=== PATIENT | female | born 1995 | race Caucasian/White ===

== ENCOUNTER 2023-05-09 11:13 | Emergency (ER) | payer SELFPAY ==
--- OUTSIDE RECORDS SUMMARY | 2023-05-09 11:19 | XMS REPORT | Continuity of Care Document ---
:1995 Author Organization [facility] t Address [address] [place] [address] Care Team Providers Name Role Phone Enio Chambers Primary Care Physician [phone] Obdulia Baig MA Attending Clinician Unavailable ENIO QUARLES Attending Clinician Unavailable Enio Chambers Attending Clinician [phone] L_Pena Attending Clinician Unavailable Lab, Les Attending Clinician Unavailable NANCI REAL Attending Clinician Unavailable Provider, Les Allen Attending Clinician Unavailable MARY SALVADOR Attending Clinician Unavailable MARY SALVADOR Attending Clinician Unavailable Doctor Unassigned, [place] Attending Clinician Unavailable TI MORENO Attending Clinician Unavailable Ti Moreno MD Attending Clinician Abraham Harris MD Attending Clinician Mary Fonseca MD Attending Clinician Nanci Valencia Attending Clinician LOULOU BELTRAN Attending Clinician Unavailable Keke HUTSON, Stacy Attending Clinician Unavailable Ultrasound, Ang-Mfm Attending Clinician Unavailable Abigail Dewitt MD, Volodymyr Attending Clinician [phone] VOLODYMYR BINGHAM Attending Clinician Unavailable GRZEGORZ RENEE Attending Clinician Unavailable Grzegorz Renee MD Attending Clinician Mary Lino Attending Clinician MARY ANDERS Attending Clinician Unavailable TORO DAVIDSON Attending Clinician Unavailable TOOR DAVIDSON Attending Clinician Unavailable Toro Davidson MD Attending Clinician 1, Pea-Mfm Room Attending Clinician Unavailable Loulou Beltran MD Attending Clinician Estefani Salina GONZALEZ Attending Clinician [phone] SALINA JARA Attending Clinician Unavailable Jeovany Goode DO Attending Clinician JIHAN MARTINEZ Attending Clinician Unavailable Only, Adc Test Attending Clinician Unavailable Jihan Martinez PA-C Attending Clinician Hanny Thacker MD Attending Clinician 2, Adc Lab Attending Clinician Unavailable Ultrasound, Adc Mfm Attending Clinician Unavailable New Abreu HoweSherinHenrryaditya Smyth Attending Clinician LOULOU BELTRAN Admitting Clinician Unavailable GRZEGORZ RENEE Admitting Clinician Unavailable HANNY THACKER Admitting Clinician Unavailable L_Pena Admitting Clinician Unavailable TI MORENO Admitting Clinician Unavailable Ti Moreno MD Admitting Clinician Grzegorz Renee MD Admitting Clinician Hanny Thacker MD Admitting Clinician JIHAN MARTINEZ Admitting Clinician Unavailable Payers Payer Name Policy Type Policy Number Effective Date Expiration Date Tania morales [facility]MERLY [facility], [facility]–1983 [id number] 2019 CHOICE MEDICAID 00:00:00 FORMERLY [facility], 1928–1983 [id number] CHOICE (MEDICAID REPLACEMENT - HMO) Problems Condition Condition Condition Status Onset Resolution Last Treating Co mments Source Name Details Category Date Date Treatment Clinician Date Disease Active Univers uterine uterine 3-04 [place] Medical third third Branch trimester, trimester, antepartum antepartum Disease Active 2020-06 Uni vers with with 2-01 ity of adoption adoption 00:00: [place] planned, planned, 00 Medica l antepartum antepartum Br anch Multiparit Multiparit Disease Active 2020-06 U nivers y y 1-03 ity of 00:00: [place] 00 Medical Branch Atypical Atypical Disease Active 2020-06 Unive rs squamous squamous 0-13 ity of cells of cells of 00:00: [place] undetermin undetermin 00 Me dical ed ed Branch significan significan ce (ASCUS) ce (ASCUS) on on Papanicola Papanicola ou smear ou smear of cervix of cervix Maternal Maternal Disease Active Unive rs varicella, varicella, 9-29 it y of non-immune non-immune [place] , , Diagnosis Active 2017-01-19 Memoria SIDE PAIN SIDE PAIN 7-14 08:01:00 l Active 00:00: [place] 12/29/2016 00 [facility] Rh Rh Disease Active Overview: Univer s negative negative 5-10 Formattin ity of state in state in 00:00: g of this Horace as antepartum antepartum 00 note Me dical period period might be Branch different from the original. Needs Rhogam at 28wks and PP. Tobacco Tobacco Disease Active Univers use in use in 5-09 ity of , , [place] unspec[place] unspecifie 00 Me dical d d Branch trimester trimester Obesity in Obesity in Disease Active U nivers 5-09 ity of 00:00: [place] 00 Medical Branch ABDOMINAL ABDOMINAL Diagnosis Active 2015-09-09 Memoria PAIN UPPER PAIN UPPER 3- 15:46:00 l Active 00:00: [place] 08/17/2015 00 [facility] History of Past Illness Condition Condition Condition Status Onset Resolution Last Treating Co mments Source Name Details Category Date Date Treatment Clinician Date Discharge Discharge Problem 2015-08-20 2015-08-20 Memoria Diagnosis: Diagnosis: 3-01 06:10:27 06:10:27 l Incomplete Incomplete 06:00: He rmann 00 08/17/2015 08/20/2015 [facility] Allergies, Adverse Reactions, Alerts Allergy Allergy Status Severity Reaction(s) Onset Inactive Treating Comm ents Source Name Type Date Date Clinician NO KNOWN Drug Active [facility] ALLERGIE Class ity of S [facility] Social History Social Habit Start Date Stop Date Quantity Comments Source ASSERTION 2021-11-03 [facility] 00:00:00 [facility] History of tobacco Cigarette Smoker University of use [facility] Alcohol intake 2022-10-19 2022-10-19 Ex-drinker [facility] 00:00:00 00:00:00 (finding) [facility] Exposure to 2022-02-13 2022-02-23 Not sure [facility] SARS-CoV-2 (event) 00:00:00 14:13:00 [facility] Tobacco Comment 2022-01-04 2022-01-04 1/2 pack daily Unive rsity of 00:00:00 00:00:00 [facility] History of Social 2022-01-04 2022-01-04 Univers ity of function 00:00:00 00:00:00 [facility] Cigarettes smoked 2022-01-04 2022-01-04 Univers ity of current (pack per 00:00:00 00:00:00 ) - Reported Branch Cigarette 2022-01-04 2022-01-04 University of pack-years 00:00:00 00:00:00 [facility] Tobacco use and 2022-01-04 2022-01-04 Smokeless Universit y of exposure 00:00:00 00:00:00 tobacco non-user [facility] Sex Assigned At [birth year] Universit y of 00:00:00 00:00:00 [facility] Smoking Status Start Date Stop Date Source Smokes tobacco daily 2022-01-04 00:00:00 Univers ity [facility] Social History [facility] Medications Ordered Filled Start Stop Current Ordering Indication Dosage Frequency Signature Comments Components Source Medication Medication Date Date Medication? Clinician (SIG) Name Name Yes [id number] 1{tbl} Take 1 Univers [id number] 3-30 tablet by ity of fum-folic 00:00: mouth [place] () 00 daily. Medical 27 mg iron- Branch 1 mg folic tablet docusate Yes [id number] 200mg Take 2 U nivers 100 mg 3-30 capsules ity of capsule 00:00: by mouth [place] 00 once daily Medical as needed Branch for Constipati on. ferrous Yes [id number] 325mg Take 1 Un [place] sulfate 325 3-30 tablet by ity of mg (65 mg 00:00: mouth 2 [place] iron) 00 (two) Medical tablet times Branch daily. ibuprofen Yes [id number] 600mg Take 1 Univers 600 mg 3-30 tablet by ity of tablet 00:00: mouth [place] 00 every 6 Medical (six) Branch hours as needed (Pain). Take with food or milk. Yes [id number] 1{tbl} Take 1 Univers [id number] 3-30 tablet by ity of fum-folic 00:00: mouth [place] () 00 daily. Medical 27 mg iron- Branch 1 mg folic tablet docusate Yes [id number] 200mg Take 2 U nivers 100 mg 3-30 capsules ity of capsule 00:00: by mouth [place] 00 once daily Medical as needed Branch for Constipati on. ferrous Yes [id number] 325mg Take 1 Un [place] sulfate 325 3-30 tablet by ity of mg (65 mg 00:00: mouth 2 [place] iron) 00 (two) Medical tablet times Branch daily. ibuprofen Yes [id number] 600mg Take 1 Univers 600 mg 3-30 tablet by ity of tablet 00:00: mouth [place] 00 every 6 Medical (six) Branch hours as needed (Pain). Take with food or milk. Yes [id number] 1{tbl} Take 1 Univers [id number] 3-30 tablet by ity of fum-folic 00:00: mouth [place] () 00 daily. Medical 27 mg iron- Branch 1 mg folic tablet docusate Yes [id number] 200mg Take 2 U nivers 100 mg 3-30 capsules ity of capsule 00:00: by mouth [place] 00 once daily Medical as needed Branch for Constipati on. ferrous Yes [id number] 325mg Take 1 Un [place] sulfate 325 3-30 tablet by ity of mg (65 mg 00:00: mouth 2 [place] iron) 00 (two) Medical tablet times Branch daily. ibuprofen Yes [id number] 600mg Take 1 Univers 600 mg 3-30 tablet by ity of tablet 00:00: mouth [place] 00 every 6 Medical (six) Branch hours as needed (Pain). Take with food or milk. Yes [id number] 1{tbl} Take 1 Univers [id number] 3-30 tablet by ity of fum-folic 00:00: mouth [place] () 00 daily. Medical 27 mg iron- Branch 1 mg folic tablet docusate Yes [id number] 200mg Take 2 U nivers 100 mg 3-30 capsules ity of capsule 00:00: by mouth [place] 00 once daily Medical as needed Branch for Constipati on. ferrous Yes [id number] 325mg Take 1 Un [place] sulfate 325 3-30 tablet by ity of mg (65 mg 00:00: mouth 2 [place] iron) 00 (two) Medical tablet times Branch daily. ibuprofen Yes [id number] 600mg Take 1 Univers 600 mg 3-30 tablet by ity of tablet 00:00: mouth [place] 00 every 6 Medical (six) Branch hours as needed (Pain). Take with food or milk. Cefuroxime Yes 500 mg = 1 M emoria 500 MG Oral 3-01 tab, PO, l Tablet 23:25: BID, X 7 [place] 00 day, # 14 tab, 0 Refill(s) Yes 1 tab, PO, Mem oria Multivitami 3- Daily, # l ns with 23:21: 30 tab, 0 Jackie nn Folic Acid 00 Refill(s) 1 mg oral tablet Acetaminoph Yes 1 tab, PO, Memoria en 300 MG / 3-01 Q6H, PRN l Codeine 23:21: Pain, not Jackie nn Phosphate 00 to exceed 30 MG Oral 4000 mg Tablet acetaminop [Tylenol hen per with day, X 3 Codeine #3] day, # 12 tab, 0 Refill(s) Methylergon No 0.2 mg = 1 Memoria ovine 3- tab, PO, l Maleate 0.2 23:19: TID, X 2 He rmann MG Oral 00 day, # 6 Tablet tab, 0 Refill(s) Morphine No Notes: Memoria 08-16 (Same l 21:39: as:MORPhin [place] 00 e Sulfate) Methergine No Notes: Memor ia 08-16 (Same l 21:19: as:Metherg Kyle 00 ine) Cytotec No Notes: Memoria 08-16 (Same l 21:18: as:Cytotec [place] 00 ) Take with food Acetaminoph No Notes: Do M emoria en 08-16 not exceed l 19:56: 4 gm/day. Kyle 00 (Same as: Tylenol) Ceftriaxone No Notes: Lenny ilya 08-16 (Same As: l 19:13: Rocephin). [place] 00 Use with 100 mL NS and infuse over 30 min MEDICATION WASTE Product Size: 1000 mg Product Wasted: ___ mg Metoclopram No Notes: Lenny ilya maryjane 08-16 (Same as: l 18:39: Reglan) Kyle 00 Sodium No 1,000 mL, Memori a Chloride 08-16 1000 l 0.154 18:38: ml/hr, Kyle MEQ/ML 00 Infuse Injectable Over: 1 Solution hr, Route: IV, 1,000, Drug form: INJ, ONCE, Priority: STAT, Dosing Weight 71.818 kg, Start date: 08/17/15 12:38:00, Duration: 1 doses or times, Stop date: 08/17/15 12:38:00 Sodium No 1,000 mL, Memori a Chloride 08-16 1000 l 0.154 18:30: ml/hr, [place] MEQ/ML 00 Infuse Injectable Over: 1 Solution hr, Route: IV, 1,000, Drug form: INJ, ONCE, Priority: STAT, Dosing Weight 71.818 kg, Start date: 08/17/15 12:30:00, Duration: 1 doses or times, Stop date: 08/17/15 12:30:00 Saline No Notes: Memoria Flush 0.9% 08-16 Same as: l 15:48: BD [place] 00 Posiflush Sterile Sodium 2016-0 No 1,000 mL, Memori a Chloride 3-01 1000 l 0.154 15:48: ml/hr, [place] MEQ/ML 00 Infuse Injectable Over: 1 Solution hr, Route: IV, 1,000, Drug form: INJ, ONCE, Priority: STAT, Dosing Weight 71.818 kg, Start date: 08/17/15 9:48:00, Duration: 1 doses or times, Stop date: 08/17/15 9:48:00 Immunizations Ordered Immunization Filled Date Status Comments Sour ce Name Immunization Name Rho (d) Immune 2021-09-14 Completed University of Globulin 00:00:00 [facility] Rho (d) Immune 2021-09-14 Completed University of Globulin 00:00:00 [facility] Rho (d) Immune 2021-09-14 Completed University of Globulin 00:00:00 [facility] TDAP 2021-06-29 Completed University of 00:00:00 [facility] Rho (d) Immune 2021-06-29 Completed University of Globulin 00:00:00 [facility] TDAP 2021-06-29 Completed University of 00:00:00 [facility] Rho (d) Immune 2021-06-29 Completed University of Globulin 00:00:00 [facility] TDAP 2021-06-29 Completed University of 00:00:00 [facility] Rho (d) Immune 2021-06-29 Completed University of Globulin 00:00:00 [facility] Influenza Virus 2021-04-20 Completed Universit y of Vaccine Quad IM, 00:00:00 [facility] [place] dical Preserv and ABX Free Bran ch 6 MO-64 YRS Influenza Virus 2021-04-20 Completed Universit y of Vaccine Quad IM, 00:00:00 [place] Me dical Preserv and ABX Free Bran ch 6 MO-64 YRS Influenza Virus 2021-04-20 Completed Universit y of Vaccine Quad IM, 00:00:00 [facility] [place] dical Preserv and ABX Free Bran ch 6 MO-64 YRS Pneumococcal 2020-03-03 Completed Isabel o f Polysaccharide, 00:00:00 [place] Med ical PPSV23 (PNEUMOVAX) Branch Pneumococcal 2020-03-03 Completed Isabel o f Polysaccharide, 00:00:00 [place] Med ical PPSV23 (PNEUMOVAX) Branch Pneumococcal 2020-03-03 Completed University o f Polysaccharide, 00:00:00 [place] Med ical PPSV23 (PNEUMOVAX) Branch TDAP 2019-12-18 Completed University of 00:00:00 [facility] Rho (d) Immune 2019-12-18 Completed University of Globulin 00:00:00 [facility] TDAP 2019-12-18 Completed University of 00:00:00 [facility] Rho (d) Immune 2019-12-18 Completed University of Globulin 00:00:00 [facility] TDAP 2019-12-18 Completed University of 00:00:00 [facility] Rho (d) Immune 2019-12-18 Completed University of Globulin 00:00:00 [facility] Influenza Virus 2019-07-23 Completed Universit y of Vaccine Quad .5 mL 00:00:00 [facility] 6+ MO Branch Influenza Virus 2019-07-23 Completed Universit y of Vaccine Quad .5 mL 00:00:00 [facility] IM 6+ MO Branch Influenza Virus 2019-07-23 Completed Universit y of Vaccine Quad .5 mL 00:00:00 [facility] 6+ MO Branch HPV9 2018-01-03 Completed University of 00:00:00 [facility] HPV Unspecified 2018-01-03 Completed Universit y of 00:00:00 [facility] HPV9 2018-01-03 Completed University of 00:00:00 [facility] HPV Unspecified 2018-01-03 Completed Universit y of 00:00:00 [facility] HPV9 2018-01-03 Completed University of 00:00:00 [facility] HPV Unspecified 2018-01-03 Completed Universit y of 00:00:00 [facility] HPV9 2017-06-27 Completed University of 00:00:00 [facility] HPV Unspecified 2017-06-27 Completed Universit y of 00:00:00 [facility] HPV9 2017-06-27 Completed University of 00:00:00 [facility] HPV Unspecified 2017-06-27 Completed Universit y of 00:00:00 [facility] HPV9 2017-06-27 Completed University of 00:00:00 [facility] HPV Unspecified 2017-06-27 Completed Universit y of 00:00:00 [facility] Varicella 2017-05-16 Completed University of (varivax)(chicken 00:00:00 [place] M edical pox) Branch Varicella 2017-05-16 Completed University of (varivax)(chicken 00:00:00 [facility] edical pox) Branch Varicella 2017-05-16 Completed University of (varivax)(chicken 00:00:00 [facility] edical pox) Branch Rho (d) Immune 2017-05-15 Completed University of Globulin 00:00:00 [facility] HPV9 2017-05-15 Completed University of 00:00:00 [facility] HPV Unspecified 2017-05-15 Completed Universit y of 00:00:00 [facility] Rho (d) Immune 2017-05-15 Completed University of Globulin 00:00:00 [facility] HPV9 2017-05-15 Completed University of 00:00:00 [facility] HPV Unspecified 2017-05-15 Completed Universit y of 00:00:00 [facility] Rho (d) Immune 2017-05-15 Completed University of Globulin 00:00:00 [facility] HPV9 2017-05-15 Completed University of 00:00:00 [facility] HPV Unspecified 2017-05-15 Completed Universit y of 00:00:00 [facility] TDAP 2017-03-28 Completed University of 00:00:00 [facility] Influenza Virus 2017-03-28 Completed Universit y of Vaccine Quad IM 3+ 00:00:00 [facility] Rho (d) Immune 2017-03-28 Completed University of Globulin 00:00:00 [facility] TDAP 2017-03-28 Completed University of 00:00:00 [facility] Influenza Virus 2017-03-28 Completed Universit y of Vaccine Quad IM 3+ 00:00:00 [facility] Rho (d) Immune 2017-03-28 Completed University of Globulin 00:00:00 [facility] TDAP 2017-03-28 Completed University of 00:00:00 [facility] Influenza Virus 2017-03-28 Completed Universit y of Vaccine Quad IM 3+ 00:00:00 [facility] Rho (d) Immune 2017-03-28 Completed University of Globulin 00:00:00 [facility] Meningococcal 2013-02-14 Completed University of Polysaccharide 00:00:00 [place] Medi mehnaz (groups A, C, Y and Branc h W-135) conjugate vaccine (MCV4P) Meningococcal 2013-02-14 Completed University of Polysaccharide 00:00:00 [place] Medi mehnaz (groups A, C, Y and Branc h W-135) conjugate vaccine (MCV4P) Meningococcal 2013-02-14 Completed University of Polysaccharide 00:00:00 [place] Medi mehnaz (groups A, C, Y and Branc h W-135) conjugate vaccine (MCV4P) Varicella 2011-02-01 Completed University of (varivax)(chicken 00:00:00 [place] M edical pox) Branch Meningococcal 2011-02-01 Completed University of Polysaccharide 00:00:00 [place] Medi mehnaz (groups A, C, Y and Branc h W-135) conjugate vaccine (MCV4P) Varicella 2011-02-01 Completed University of (varivax)(chicken 00:00:00 [place] M edical pox) Branch Meningococcal 2011-02-01 Completed University of Polysaccharide 00:00:00 [place] Medi mehnaz (groups A, C, Y and Branc h W-135) conjugate vaccine (MCV4P) Varicella 2011-02-01 Completed University of (varivax)(chicken 00:00:00 [place] M edical pox) Branch Meningococcal 2011-02-01 Completed University of Polysaccharide 00:00:00 [facility] mehnaz (groups A, C, Y and Branc h W-135) conjugate vaccine (MCV4P) Polio (IPV/OPV) 2002-01-28 Completed Universit y of 00:00:00 [facility] Polio (IPV/OPV) 2002-01-28 Completed Universit y of 00:00:00 [facility] Polio (IPV/OPV) 2002-01-28 Completed Universit y of 00:00:00 [facility] TDAP Unknown Completed [facility] Influenza Virus Unknown Completed Universit y of Vaccine Quad IM 3+ [facility] Rho (d) Immune Unknown Completed [facility] Globulin [facility] Rho (d) Immune Unknown Completed [facility] HPV9 Unknown Completed [facility] Varicella Unknown Completed University of (varivax)(chicken [place] M edical pox) Branch HPV9 Unknown Completed [facility] HPV9 Unknown Completed [facility] Influenza Virus Unknown Completed Universit y of Vaccine Quad .5 mL [facility] 6+ MO Branch (FLUZONE/FLULAVAL/FL UARIX) HPV Unspecified Unknown Completed Universit y of [facility] HPV Unspecified Unknown Completed Universit y of [facility] HPV Unspecified Unknown Completed Universit y of [facility] Varicella Unknown Completed University of (varivax)(chicken [place] M edical pox) Branch Meningococcal Unknown Completed [facility] Polysaccharide [facility] mehnaz (groups A, C, Y and Branc h W-135) conjugate vaccine (MCV4P) Meningococcal Unknown Completed [facility] Polysaccharide [facility] (groups A, C, Y and Branc h W-135) conjugate vaccine (MCV4P) Polio (IPV/OPV) Unknown Completed [facility] TDAP Unknown Completed [facility] Rho (d) Immune Unknown Completed [facility] Pneumococcal Unknown Completed Isabel o f Polysaccharide, [facility] ica PPSV23 (PNEUMOVAX) Branch TDAP Unknown Completed [facility] Influenza Virus Unknown Completed Universit y of Vaccine Quad IM 3+ [facility] Rho (d) Immune Unknown Completed [facility] Rho (d) Immune Unknown Completed [facility] HPV9 Unknown Completed [facility] Varicella Unknown Completed University of (varivax)(chicken [place] M edical pox) Branch HPV9 Unknown Completed [facility] HPV9 Unknown Completed [facility] Influenza Virus Unknown Completed Universit y of Vaccine Quad .5 mL [facility] 6+ MO Branch (FLUZONE/FLULAVAL/FL UARIX) HPV Unspecified Unknown Completed [facility] HPV Unspecified Unknown Completed [facility] HPV Unspecified Unknown Completed [facility] Varicella Unknown Completed University of (varivax)(chicken [place] M edical pox) Branch Meningococcal Unknown Completed University Polysaccharide [facility] (groups A, C, Y and Branc h W-135) conjugate vaccine (MCV4P) Meningococcal Unknown Completed [facility] Polysaccharide [facility] (groups A, C, Y and Branc h W-135) conjugate vaccine (MCV4P) Polio (IPV/OPV) Unknown Completed [facility] TDAP Unknown Completed [facility] Rho (d) Immune Unknown Completed [facility] TDAP Unknown Completed [facility] Influenza Virus Unknown Completed Universit y of Vaccine Quad IM 3[facility] Rho (d) Immune Unknown Completed [facility] Rho (d) Immune Unknown Completed [facility] HPV9 Unknown Completed [facility] Varicella Unknown Completed University of (varivax)(chicken [place] M edical pox) Branch HPV9 Unknown Completed [facility] HPV9 Unknown Completed [facility] Influenza Virus Unknown Completed Universit y of Vaccine Quad .5 mL [facility] IM 6+ MO Branch (FLUZONE/FLULAVAL/FL UARIX) HPV Unspecified Unknown Completed [facility] HPV Unspecified Unknown Completed [facility] HPV Unspecified Unknown Completed [facility] Varicella Unknown Completed University of (varivax)(chicken [place] [facility] pox) Branch Meningococcal Unknown Completed [facility] Polysaccharide [facility] mehnaz (groups A, C, Y and Branc h W-135) conjugate vaccine (MCV4P) Meningococcal Unknown Completed [facility] Polysaccharide [facility] mehnaz (groups A, C, Y and Branc h W-135) conjugate vaccine (MCV4P) Polio (IPV/OPV) Unknown Completed [facility] TDAP Unknown Completed [facility] Rho (d) Immune Unknown Completed [facility] Pneumococcal Unknown Completed [facility] ical PPSV23 (PNEUMOVAX) Branch Influenza Virus Unknown Completed [facility] of Vaccine Quad , [facility] dical Preserv and ABX Free Bran ch 6 MO-64 YRS (FLUCELVAX) TDAP Unknown Completed [facility] Rho (d) Immune Unknown Completed [facility] Rho (d) Immune Unknown Completed [facility] RhoGam (MAR Unknown Completed [facility] Charting) Kyle Vital Signs Vital Name Observation Time Observation Value Comments Source Systolic blood 2022-02-23 19:14:00 117 mm[Hg] [facility] Diastolic blood 2022-02-23 19:14:00 67 mm[Hg] [facility] [place] Heart rate 2022-02-23 19:14:00 94 /min [facility] Body temperature 2022-02-23 19:14:00 36.22 Sarah [facility] Respiratory rate 2022-02-23 19:14:00 18 /min [facility] Body height 2022-02-23 19:14:00 167.6 cm [facility] Body weight 2022-02-23 19:14:00 104.809 kg [facility] BMI 2022-02-23 19:14:00 37.29 kg/m2 [facility] Respitory Rate 2015-08-18 00:35:00 Memori al [facility] Heart Rate 2015-08-18 00:35:00 [facility] Temperature Oral (F) 2015-08-18 00:35:00 98.4 F [facility] Systolic (mm Hg) 2015-08-18 00:35:00 Lenny rial [facility] Diastolic (mm Hg) 2015-08-18 00:35:00 Mem orial [place] Temperature Oral (F) 2015-08-17 22:42:00 98.4 F [facility] Systolic (mm Hg) 2015-08-17 22:42:00 Lenny rial [place] Diastolic (mm Hg) 2015-08-17 22:42:00 Mem orial [place] Respitory Rate 2015-08-17 22:42:00 Memori [facility] [place] Heart Rate 2015-08-17 22:42:00 [facility] Respitory Rate 2015-08-17 21:10:00 Memori al [facility] Heart Rate 2015-08-17 21:10:00 [facility] Systolic (mm Hg) 2015-08-17 21:10:00 Lenny rial [place] Diastolic (mm Hg) 2015-08-17 21:10:00 Mem orial [place] Temperature Oral (F) 2015-08-17 21:10:00 98.3 F [facility] BMI Calculated 2015-08-17 15:30:00 Memori al [facility] Height 2015-08-17 15:30:00 167.64 cm [facility] Kyle Weight 2015-08-17 15:30:00 [facility] Procedures Procedure Date / Time Performed Performing Clinician Sourc e POCT URINALYSIS 2022-02-23 19:16:00 Mary Salvador [facility] Encounters Start End Encounter Admission Attending Care Care Encounter Source Date/Time Date/Time Type Type Clinicians Facility Department ID 2021-08-19 Outpatient X [facility] [id number] Univers 15:10:02 y [facility] 2021-04-15 Outpatient P [facility] [id number] Univers 16:36:50 [facility] 2021-04-15 Outpatient P [facility] [id number] Univers 15:40:56 ity of [facility] 2021-04-15 Outpatient P [facility] [id number] Univers 15:38:58 ity of [facility] 2021-04-15 Outpatient P [facility] [id number] Univers 09:42:34 ity of [facility] 2021-04-15 Outpatient P [facility] [id number] Univers 09:40:24 ity of [facility] 2023-03-22 2023-03-22 VIKKI Ramos 1.2.840.114 [id number] Univers 00:00:00 00:00:00 Management Obdulia YING 350.1.13.10 [place] of [place] [phone] [address] 2022-03-30 2022-03-30 Outpatient P [facility] [id number] Univers 10:45:00 10:45:00 ity [facility] 2022-03-23 2022-03-23 Outpatient R AKINSIPE, [facility] [id number] Univers 14:00:00 14:00:00 ENIO otilioy o [facility] 2022-02-23 2022-02-23 Outpatient R AKINSIPE, [facility] [id number] Univers 14:00:00 15:36:17 ENIO otilioy o f [facility] 2022-02-23 2022-02-23 Routine Akinpe, [facility] 1.2.467.075 [id number] Univers 14:00:00 15:36:17 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 350.1.13.10 ity of Visit REGIONAL 4.2.7.2.686 Horace as MATERNAL [phone] Med ical & CHILD [address] [place] [address] 2022-02-16 2022-02-16 Outpatient L_Phillip [facility] [id number] [place] 00:00:00 00:00:00 0901 [facility] 2022-02-13 2022-02-13 [facility] 1.2.840.114 [id number] Univers 00:00:00 00:00:00 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 350.1.13.10 ity of REGIONAL 4.2.7.2.686 Horace as MATERNAL [id number] [facility] [address] [place] [address] 2022-02-10 2022-02-10 Dry House Worker Lab, [facility] 1.2.840. 114 [id number] Univers 08:15:00 08:24:14 Visit Enio Quarles STITCHER OPERATOR 350.1.13. 10 ity of [facility] 4.2.7.2.686 Horace as MATERNAL [id number] [facility] ical & CHILD [address] [place] [address] 2022-02-10 2022-02-10 Outpatient R WILLAM [facility] [id number] Univers 08:15:00 08:15:00 ENIO alfaro o [facility] 2022-02-10 2022-02-10 Telephone Willam [facility] 1.2.840.114 [id number] Univers 00:00:00 00:00:00 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 350.1.13.10 ity of [facility] 4.2.7.2.686 Horace as MATERNAL [id number] [address] 2022-02-01 2022-02-01 Outpatient Hang REAL [facility] [id number] Univers 11:00:00 11:00:00 NANCI álvarez [facility] 2022-01-09 2022-01-09 Outpatient Hang QUARLES [facility] [id number] Univers 10:30:00 10:30:00 ENIO alfaro o [facility] 2022-01-06 2022-01-06 Telephone Provider, [facility] 1.2.840.114 [id number] Univers 00:00:00 00:00:00 [facility] STITCHER OPERATOR 350.1.13.10 ity of [facility] 4.2.7.2.686 Horace as MATERNAL [id number] [facility] & CHILD [address] [place] [address] 2022-01-04 2022-01-04 Outpatient MARY MIDDLETON [facility] [id number] Univers 13:00:00 14:37:56 MARY SALVADOR ity of [facility] 2022-01-04 2022-01-04 Initial [facility] 1 .2.840.114 [id number] Univers 13:00:00 14:37:56 Mary Salvador STITCHER OPERATOR 350.1.13.10 ity of Visit [facility] 4.2.7.2.686 Horace as MATERNAL [id number] Med ical & CHILD [address] [place] [address] 2022-01-04 2022-01-04 Orders Doctor TRUDI 1.2.840.114 [id number] Univers 00:00:00 00:00:00 Only Unassigned, NICK 350.1.13.10 ity of [place] [facility] 4.2.7.2.686 Horace as [id number] [place] [address] [place] 2021-12-16 2021-12-16 Outpatient R [facility] [id number] Univers 09:30:00 09:30:00 ity of [facility] 2021-12-06 2021-12-06 Outpatient R AKINSIPE, [facility] [id number] Univers 14:15:00 14:15:00 ENIO itluci o [facility] 2021-10-19 2021-10-19 Outpatient R ADDIE, [facility] [id number] Univers 14:30:00 14:30:00 ROSPATRICNDA itluci o [facility] 2021-09-13 2021-09-14 Inpatient X SANTANA [facility] [id number] Univers 07:28:00 19:31:00 TI itluci [facility] 2021-09-13 2021-09-14 Hospital TRUDI Moreno 1.2.777.857 [id number] Univers 07:28:00 19:31:00 Encounter Ti ROMERO 350.1.13.[address]2.686 Horace as [phone] [place] [address] [place] 2021-09-13 2021-09-13 Anesthesia Abraham Harris 1.2.840.11 [id number] Univers 10:08:00 18:52:00 Event Mary Fonseca 350.1.13.10 ity of HOSPITAL 4.2.7.2.686 Horace as [phone] [facility] [address] [place] 2021-09-13 2021-09-13 Orders Doctor TRUDI 1.2.840.114 [id number] Univers 00:00:00 00:00:00 Only Unassigned, NICK 350.1.13.10 ity of [place] [facility] 4.2.7.2.686 Horace as [id number] [facility] [address] [place] 2021-09-06 2021-09-06 [facility] [id number] Univers 15:30:00 15:30:00 [facility] 2021-08-30 2021-08-30 [facility]patient [facility] [id number] Univers 13:15:00 13:54:40 [facility] 2021-08-30 2021-08-30 [facility] 1.2.840.114 [id number] Univers 13:15:00 13:30:00 Roshunda R STITCHER OPERATOR 350.1.13.10 ity of Visit [facility] 4.2.7.2.686 Horace as MATERNAL [phone] [facility] ical & CHILD [address] [place] [address] 2021-08-30 2021-08-30 [facility]patient [facility] [id number] Univers 13:15:00 13:15:00 ROSPATRICNDA ity o [facility] 2021-08-23 2021-08-23 [facility]patient [facility] [id number] Univers 10:30:00 11:26:35 ROSNDA ity o [facility] 2021-08-23 2021-08-23 [facility] 1.2.840.114 [id number] Univers 10:30:00 11:26:35 Roshunda R STITCHER OPERATOR 350.1.13.10 ity of Visit [facility] 4.2.7.2.686 Horace as MATERNAL [id number] [facility] [address] [place] [address] 2021-08-232021-08-23 [facility] [id number] Univers 10:30:00 11:26:35 MARTYNDA dominic o f [facility] 2021-08-19 2021-08-19 Outpatient Soledad BELTRAN [facility] [id number] Univers 13:14:00 15:00:00 LOULOU ity [facility] 2021-08-19 2021-08-19 Nurse Stacy Davies 1.2.840.114 [id number] Univers 00:00:00 00:00:00 Triage NICK 350.1.13.10 it y of [facility] 4.2.7.2.686 Horace as [id number] [address] 2021-08-10 2021-08-10 [facility] 1.2.840.114 [id number] Univers 13:00:00 13:15:00 Roshunda R STITCHER OPERATOR 350.1.13.10 ity of Visit REGIONAL 4.2.7.2.686 Horace as MATERNAL [id number] [facility] ical & CHILD [address] [place] [address] 2021-08-10 2021-08-10 [facility] [id number] Univers 13:00:00 13:00:00 NANCI alfaro o [facility] 2021-07-27 2021-07-27 [facility] [id number] Univers 13:00:00 13:36:39 MARYTNDA dominic o [facility] 2021-07-27 2021-07-27 [facility] 1.2.840.114 [id number] Univers 13:00:00 13:36:39 Roshunda R STITCHER OPERATOR 350.1.13.10 ity of Visit REGIONAL 4.2.7.2.686 Horace as MATERNAL [id number] [facility] ical & CHILD [address] [place] [address] 2021-07-25 2021-07-25 Dry House Worker Ultrasound, [facility] 1.2 .840.114 [id number] Univers 10:30:00 11:00:00 Visit Volodymyr Bingham STITCHER OPERATOR 350.1. 13.10 ity of REGIONAL 4.2.7.2.686 Horace as MATERNAL [phone] [facility] ical & CHILD [address] [facility] 2021-07-25 2021-07-25 Outpatient P ABIGAIL [facility] [id number] Univers 10:30:00 10:30:00 ALESHIA it y of S, HELM [facility] 2021-07-13 2021-07-13 Routine [facility] 1.2.840.114 [id number] Univers 09:30:00 09:45:00 Roshunda R STITCHER OPERATOR 350.1.13.10 ity of Visit REGIONAL 4.2.7.2.686 Horace as MATERNAL [id number] [facility] & [address] 2021-07-13 2021-07-13 [facility] [id number] Univers 09:30:00 09:30:00 ROSPATRICNDA dominic o f [facility] 2021-07-13 2021-07-13 Outpatient R ADDIE [facility] [id number] Univers 09:30:00 09:30:00 ROSPATRICNDA itluci o f [facility] 2021-06-30 2021-06-30 Outpatient X GRZEGORZ RENEE [facility] [id number] Univers 15:14:00 18:40:00 ity of [facility] 2021-06-30 2021-06-30 Emergency Grzegorz Renee [facility] 1.2.840.114 [id number] Univers 15:14:00 18:40:00 [facility] 350.1.13.10 i ty of [place] 4.2.7.2.686 [place] [facility] [id number] [address] 2021-06-30 2021-06-30 Telephone [facility] 1.2.023.773 [id number] Univers 00:00:00 00:00:00 Roshunda R STITCHER OPERATOR 350.1.13.10 ity of REGIONAL 4.2.7.2.686 Horace as MATERNAL [id number] [facility] & CHILD [address] [place] [address] 2021-06-29 2021-06-29 Outpatient R ADDIE [facility] [id number] Univers 13:30:00 14:04:36 NANCI alfaro o f [facility] 2021-06-29 2021-06-29 Routine Nanci Real R [facility] 1.2.840 .114 [id number] Univers 13:30:00 14:04:36 Mary Anders STITCHER OPERATOR 350.1.13.10 ity of Visit REGIONAL 4.2.7.2.686 Horace as MATERNAL [id number] [facility] ical & CHILD [address] [place] [address] 2021-06-29 2021-06-29 Outpatient R MARTITA [facility] [id number] Univers 13:30:00 13:30:00 MARY alfaro [facility] 2021-06-08 2021-06-08 [facility] [id number] Univers 07:45:00 08:27:33 MARY yañezluci [facility] 2021-06-08 2021-06-08 Routine [facility] 1.2.711.435 [id number] Univers 07:45:00 08:27:33 Mary Beck STITCHER OPERATOR 350.1.13.10 i ty of Visit REGIONAL 4.2.7.2.686 Horace as MATERNAL [phone] [facility] & CHILD [address] [place] [address] 2021-06-08 2021-06-08 Outpatient R MARTITA [facility] [id number] Univers 07:45:00 07:45:00 MARY alfaro [facility] 2021-05-25 2021-05-25 Outpatient P TORO DAVIDSON [facility] [id number] Univers 14:30:00 14:56:10 TORO DAVIDSON [facility] 2021-05-25 2021-05-25 Dry House Worker Ultrasound, [facility] 1.2 .840.114 [id number] Univers 14:22:35 14:56:10 Visit Toro Davidson STITCHER OPERATOR 350.1.13.10 ity of REGIONAL 4.2.7.2.686 Horace as MATERNAL [id number] [facility] CHILD [address] [place] [address] 2021-05-18 2021-05-18 Routine [facility] 1.2.755.009 [id number] Univers 14:15:10 14:41:41 Mary N STITCHER OPERATOR 350.1.13.10 i ty of Visit REGIONAL 4.2.7.2.686 Horace as MATERNAL [id number] [facility] CH[facility] [address] [place] [address] 2021-05-18 2021-05-18 Outpatient [facility] [id number] Univers 14:15:00 14:41:41 MARY alfaro [facility] 2021-05-18 2021-05-18 Outpatient [facility] [id number] Univers 14:15:00 14:15:00 MARY alfaro [facility] 2021-05-06 2021-05-06 Telephone [facility] 1.2.840.114 [id number] Univers 00:00:00 00:00:00 Mary Beck STITCHER OPERATOR 350.1.13.10 it y of [facility] 4.2.7.2.686 Horace as MATERNAL [id number] [address] 2021-04-20 2021-04-20 Routine [facility] 1.2.023.056 [id number] Univers 14:02:21 14:59:49 Mary N STITCHER OPERATOR 350.1.13.10 i ty of Visit [facility] 4.2.7.2.686 Horace as MATERNAL [id number] [facility] & [address] 2021-04-20 2021-04-20 Outpatient [facility] [id number] Univers 13:45:00 14:59:49 MARYMICHELLE alfaro [facility] 2021-04-12 2021-04-12 Dry House Worker 1, Asaf [facility] 1.2. 840.114 [id number] Univers 08:21:26 09:23:14 Visit Loulou Beltran STITCHER OPERATOR 350.1.13.10 ity of [facility] 4.2.7.2.686 Horace as MATERNAL [id number] [facility] CHILD [address] [place] [address] 2021-04-12 2021-04-12 Dry House Worker 1, AshleighMfsundeep Room [facility] 1.2. 840.114 [id number] Univers 08:21:26 09:23:14 Visit Loulou Beltran STITCHER OPERATOR 350.1.13.10 ity of REGIONAL 4.2.7.2.686 Horace as MATERNAL [id number] Med ical & CHILD 369 [facility] 2021-04-12 2021-04-12 Outpatient R [facility] [id number] Univers 08:00:00 08:00:00 ity of [facility] 2021-04-06 2021-04-06 Dry House Worker Lab, [facility] 1.2.840. 114 [id number] Univers 08:02:52 08:10:04 Visit Nanci Real STITCHER OPERATOR 350.1.13.10 ity of [facility] 4.2.7.2.686 Horace as MATERNAL [id number] [facility] & CHILD [address] [place] [address] 2021-04-06 2021-04-06 [facility] [id number] Univers 08:00:00 08:00:00 YULIGAMALIEL ity o f [facility] 2021-03-30 2021-03-30 Telephone [facility] 1.2.840.114 [id number] Univers 00:00:00 00:00:00 Salina Álvarez STITCHER OPERATOR 350.1.13.10 ity of [facility] 4.2.7.2.686 Horace as MATERNAL [id number] [facility] & CHILD [address] [place] [address] 2021-03-21 2021-03-21 [facility] [id number] Univers 08:15:00 08:15:00 MARTYNDA ity o f [facility] 2021-03-16 2021-03-16 Telephone Provider, [facility] 1.2.840.114 [id number] Univers 00:00:00 00:00:00 [facility] STITCHER OPERATOR 350.1.13.10 ity of [facility] REGIONAL 4.2.7.2.686 Horace as MATERNAL [id number] [facility] & CHILD [address] [place] [address] 2021-03-15 2021-03-15 Outpatient R ESTEFANI [facility] [id number] Univers 10:15:00 10:33:13 SALINA ity o f [facility] 2021-03-15 2021-03-15 Initial [facility], [facility] 1 .2.840.114 [id number] Univers 09:50:38 10:33:13 Salina Jara STITCHER OPERATOR 350.1.13 .10 ity of Visit REGIONAL 4.2.7.2.686 Horace as MATERNAL [id number] Med ical & CHILD [address] [place] [address] 2021-03-15 2021-03-15 Initial Provider, [facility] 1 .2.840.114 [id number] Univers 09:50:38 10:33:13 Salina Jara STITCHER OPERATOR 350.1.13 .10 ity of Visit REGIONAL 4.2.7.2.686 Horace as MATERNAL [id number] Med ical & CHILD [address] [place] [address] 2021-03-15 2021-03-15 Initial Provider, [facility] 1 .2.840.114 [id number] Univers 09:50:38 10:33:13 Salina Jara STITCHER OPERATOR 350.1.13 .10 ity of Visit REGIONAL 4.2.7.2.686 Horace as MATERNAL [id number] Med ical & CHILD [address] [place] [address] 2021-03-15 2021-03-15 Initial Provider, JenniferRegtraci [facility] 1 .2.840.114 [id number] Univers 09:50:38 10:33:13 Salina Jara STITCHER OPERATOR 350.1.13 .10 ity of Visit REGIONAL 4.2.7.2.686 Horace as MATERNAL [id number] [facility] ical & CHILD [address] [place] [address] 2021-03-15 2021-03-15 Outpatient R [facility] [id number] Univers 09:45:00 09:45:00 ity of [facility] 2021-03-15 2021-03-15 Outpatient R ADDIE [facility] [id number] Univers 09:15:00 09:15:00 MARTYJOSEPHA otilioy o f [facility] 2021-03-15 2021-03-15 Orders Doctor TRUDI 1.2.840.114 [id number] Univers 00:00:00 00:00:00 Only Unassigned, NICK 350.1.13.10 ity of [place] [facility] 4.2.7.2.686 Horace as [id number] [facility] [address] 2021-02-28 2021-02-28 Outpatient R ADDIE [facility] [id number] Univers 14:00:00 14:00:00 YULIGAMALIEL yañezy o f [facility] 2021-01-20 2021-01-20 Patient Doctor TRUDI 1.2.840.114 [id number] Univers 00:00:00 00:00:00 Secure Msg Unassigned, NICK 350.1.13.10 ity of [place] [facility] 4.2.7.2.686 Horace as [id number] [facility] [address] 2020-09-07 2020-09-07 Patient Russel [facility] 1.2.840.114 [id number] Univers 00:00:00 00:00:00 Outreach Jeovany PRIMARY 350.1.13.10 i ty of [facility] 4.2.7.2.686 [place] [id number] [facility] [address] 2020-03-24 2020-03-24 [facility] [id number] Univers 10:15:00 10:15:00 JIHAN ity of [facility] 2020-03-02 2020-03-03 Hospital Grzegorz Renee [facility] 1.2.840.114 [id number] Univers 03:57:00 19:05:00 Encounter Sean Brewer 350.1.13.10 ity of [place].686 [place] [id number] [facility] [address] 2020-03-01 2020-03-01 Laboratory Only, Adc Test [facility] 1.2.840. 114 [id number] Univers 12:12:42 12:27:42 Only Grzegorz Renee 350.1.13.10 ity of [place] 4.2.7.2.686 [place] [id number] [facility] [address] 2020-03-01 2020-03-01 Outpatient R [facility] [id number] Univers 11:15:00 11:15:00 ity of [facility] 2020-02-25 2020-02-25 Routine [facility] 1.2.765.630 [id number] Univers 10:53:00 11:08:00 Sean Brewer 350.1.13.10 ity of Visit [place] 4.2.7.2.686 [facility] Professio [phone] Ny dical nal [address] [facility] 2020-02-25 2020-02-25 Outpatient R THELMA GRZEGORZ [facility] [id number] Univers 10:45:00 10:45:00 ity of [facility] 2020-02-19 2020-02-19 Hospital [facility] 1.2.840.114 [id number] Univers 06:03:00 08:40:00 Encounter Sean Brewer 350.1.13.10 ity of [place] 4.2.7.2.686 [facility] [id number] [facility] [address] [place] 2020-02-17 2020-02-17 Outpatient R [facility] [id number] Univers 09:45:00 09:45:00 ity of [facility] 2020-02-16 2020-02-16 Routine [facility] 1.2.241.395 [id number] Univers 16:06:46 17:29:01 Jihan Brewer 350.1.13.10 ity of Visit [place] 4.2.7.2.[address] [facility] [place] [id number] Ny dical nal 134 [facility] 2020-02-16 2020-02-16 [facility] [id number] Univers 16:00:00 16:00:00 JIHAN ity of [facility] 2020-02-16 2020-02-16 Orders Doctor BRUSH 1.2.840.114 [id number] Univers 00:00:00 00:00:00 Only Unassigned, NICK 350.1.13.10 ity of [place] [facility] 4.2.7.2.686 [facility] [id number] [address] 2020-02-13 2020-02-13 Outpatient R FREDDYKAREN [facility] [id number] Univers 11:30:00 11:30:00 JIHAN ity of [facility] 2020-01-23 2020-01-23 Routine Grzegorz Renee [facility] 1.2.521.741 [id number] Univers 15:17:15 15:51:58 Cam Dunlevy [id number] [id number] [id number] [address] 2020-01-23 2020-01-23 Outpatient R [facility]GORZ [facility] [id number] Univers 15:15:00 15:15:00 ity of [facility] 2020-01-22 2020-01-22 Patient Grzegorz Renee [facility] [id number] Univers 00:00:00 00:00:00 Secure Msg Cam [place] [id number] [place]y [id number] [id number] [address] 2020-01-14 2020-01-14 Hospital [facility] [id number] Univers 16:01:00 20:08:00 Encounter Hanny Brewer [id number] [id number] [id number] [facility] [address] [place] 2020-01-14 2020-01-14 Orders Doctor TRUDI [id number] Univers 00:00:00 00:00:00 Only Unassigned, NICK [id number] ity of [place] [facility] [id number] Horace as [phone] [address] 2020-01-14 2020-01-14 Telephone Grzegorz Renee [facility] 1.2.840.114 [id number] Univers 00:00:00 00:00:00 Cam Dunlevy [id number] [id number] [phone] [address] 2020-01-14 2020-01-14 [facility] 1.2.840.114 [id number] Univers 00:00:00 00:00:00 Management Hanny Brewer [id number] [id number] [phone] [address] 2020-01-12 2020-01-12 Telephone Grzegorz Renee [facility] 1.2.840.114 [id number] Univers 00:00:00 00:00:00 Sean Brewer [id number] [id number] [phone] [address] 2019-12-31 2019-12-31 Outpatient R THELMA GRZEGORZ [facility] [id number] Univers 16:00:00 16:00:00 ity of [facility] 2019-12-23 2019-12-23 Telephone [facility] 1.2.840.114 [id number] Univers 00:00:00 00:00:00 Sean Brewer [id number] [id number] [phone] [address] 2019-12-21 2019-12-21 Case [facility] [id number] Univers 00:00:00 00:00:00 Management Jihan Brewer [id number] [id number] [phone] [address] 2019-12-18 2019-12-18 Routine [facility] [id number] Univers 14:21:42 16:22:35 Jihan Brewer [id number] ity [id number] [phone] [address] 2019-12-18 2019-12-18 Outpatient R JUAN [facility] [id number] Univers 14:45:00 14:45:00 JIHAN alfaro [facility] 2019-12-18 2019-12-18 Dry House Worker 2, Adc Lab [facility] 1.2.840.114 [id number] Univers 08:28:03 08:43:03 Visit Grzegorz Renee Daniella [id number] [id number] [phone] Ny dical nal 353 [facility] 2019-12-11 2019-12-11 Telephone Grzegorz Renee [facility] 1.2.840.114 [id number] Univers 00:00:00 00:00:00 Sean Brewer [id number] [id number] [phone] Ny dical nal 134 [facility] 2019-11-21 2019-11-21 Outpatient R [facility] [id number] Univers 10:00:00 10:00:00 ity [facility] 2019-11-20 2019-11-20 Routine Grzegorz Renee [facility] 1.2.183.004 [id number] Univers 13:09:23 13:31:12 Sean Brewer [id number] it[id number] [phone] Ny dical nal 134 [facility] 2019-11-20 2019-11-20 Outpatient R GRZEGORZ RENEE [facility] [id number] Univers 13:15:00 13:15:00 ity [facility] 2019-11-04 2019-11-04 Outpatient R JUAN [facility] [id number] Univers 12:42:37 23:59:00 JIHAN itluci [facility] 2019-11-04 2019-11-04 [facility] 1.2.840.114 [id number] Univers 12:42:00 23:59:00 Encounter Jihan Brewer [id number] [id number] [phone] [facility] [address] [place] [address] 2019-11-04 2019-11-04 [facility] [id number] Univers 00:00:00 00:00:00 JIHAN alfaro of [facility] 2019-11-04 2019-11-04 Orders Doctor BRUSH 1.2.840.114 [id number] Univers 00:00:00 00:00:00 Only Unassigned, NICK 350.1.13.10 ity of [place] [facility] [id number] Horace as [phone] [address] 2019-10-24 2019-10-24 Outpatient R [facility] [id number] Univers 14:15:00 14:15:00 ity of [facility] 2019-10-23 2019-10-24 Telemedici Juan Jihan [facility] 1.2.840 .114 [id number] Univers 08:05:46 14:08:34 ne Visit Grzegorz Renee [id number] [id number] [phone] Ny dical nal [address] [place] [address] 2019-10-24 2019-10-24 Dry House Worker Ultrasound, Adc [facility] 1.2 .840.114 [id number] Univers 13:00:15 13:56:41 Visit Toro Davidson [id number] [id number] [phone] Ny dical nal [address] [place] [address] 2019-10-24 2019-10-24 Orders Grzegorz Renee 1.2.127.590 [id number] Univers 00:00:00 00:00:00 Only Sean ROMERO [id number] it y of HOSPITAL [id number] [place]ace as [phone] [address] 2019-10-23 2019-10-23 Outpatient R GRZEGORZ RENEE [facility] [id number] Univers 16:00:00 16:00:00 ity of [facility] 2019-10-20 2019-10-20 Telephone Grzegorz Renee [facility] 1.2.840.114 [id number] Univers 00:00:00 00:00:00 Sean Brewer 350.1.13.10 i [id number] [phone] [address] 2019-10-15 2019-10-15 [facility] 1.2.840.114 [id number] Univers 00:00:00 00:00:00 Sean Brewer [id number] i [id number] [phone] [address] 2019-10-15 2019-10-15 Telephone [facility] 1.2.840.114 [id number] Univers 00:00:00 00:00:00 Cam Daniella [id number] i [id number] [phone] [address] 2019-10-15 2019-10-15 Orders Doctor TRUDI 1.2.840.114 [id number] Univers 00:00:00 00:00:00 Only Unassigned, NICK 350.1.13.10 ity of [place] [facility] [id number] Horace as [phone] [address] 2019-10-09 2019-10-09 Outpatient R THELMA [facility] [id number] Univers 00:00:00 00:00:00 ity [facility] 2019-09-25 2019-09-25 Telemedici [facility] 1.2.840.114 [id number] Univers 13:59:10 15:05:02 ne Visit Sean Brewer [id number] [id number] [phone] [address] 2019-09-25 2019-09-25 Outpatient R THELMA SHELBY [facility] [id number] Univers 15:00:00 15:00:00 ity [facility] 2019-09-01 2019-09-01 Outpatient R THELMA SHELBY [facility] [id number] Univers 10:30:00 10:30:00 ity [facility] 2019-07-29 2019-07-29 Telephone [facility] 1.2.840.114 [id number] Univers 00:00:00 00:00:00 Jihan Brewer 350.1.13.10 i [id number] [phone] Ny dical nal [address] [place] [address] 2019-07-23 2019-07-23 Outpatient R GRZEGORZ [facility] [id number] Univers 10:00:00 11:46:02 ity of [facility] 2019-07-23 2019-07-23 Initial Grzegorz Renee [facility] [id number] Univers 09:56:52 11:46:02 Sean Brewer [id number] [id number] [phone] Ny dical nal [address] [place] [address] 2019-07-23 2019-07-23 Orders Doctor TRUDI 1.2.840.114 [id number] Univers 00:00:00 00:00:00 Only Unassigned, NICK 350.1.13.10 ity of [place] [facility] [id number] Horace as [phone] [address] 2015-08-17 2015-08-18 [facility] [id number]:01[facility] 00:50:00 Emergency r [address] 2015-08-17 2015-08-17 Outpatient [facility] [id number] 09:01:00 18:50:00 Pu, 00 [facility] Results Test Description Test Time Test Comments Results Result Comments Source POCT URINALYSIS W SPECIFIC GRAVITY 2022-02-23 19:16:00 Test Item Value Reference Range Interpretation Comme nts POCT U SP GRAV (test code = 3255) . 1.005-1.025 POCT PH U (test code = 3254) . 5-8 POCT U LEUK EST (test code = 3263) . Negative - Negative POCT U NIT (test code = 3262) . Negative - Negative POCT U PROT (test code = 3259) 1+ Negative - Negative POCT U GLU (test code = 3256) Neg Negative - Negative POCT U KETONE (test code = 3258) . Negative - Negative POCT U UROBILI (test code = 3260) . 0.2-1 POCT U BILI (test code = 3261) . Negative - Negative POCT U BLD (test code = 3257) . Negative - Negative POCT U COLOR (test code = 3266) . POCT U APPEAR (test code = 3267) [facility] [id number] 22:22:00 Test Item Value Reference Range Interpretation Comments Rhig (test code = Product available Rhig) 1(08/17/15 4:22 PM) [facility] BANK [id number] 21:26:00 Test Item Value Reference Range Interpretation Comments Antibody Scrn (test Negative (08/17/15 3:26 code = Antibody Scrn) PM) [facility] BANK [id number] 21:26:00 Test Item Value Reference Range Interpretation Comments ABO/Rh (test code = ABO/Rh) O NEG [facility] AND [id number] 18:22:00 Test Item Value Reference Range Interpretation Comments UA Mucus (test code = None Seen (08/17/15 UA Mucus) 12:22 PM) [facility] AND [id number] 18:22:00 Test Item Value Reference Range Interpretation Comments UA Sq Epi (test code = UA Sq Epi) Rare /LPF [facility] AND [id number] 18:22:00 Test Item Value Reference Range Interpretation Comments UA WBC (test code = UA WBC) 11-20 /HPF [facility] AND [id number] 18:22:00 Test Item Value Reference Range Interpretation Comments UA Nitrite (test code Positive *ABN*(08/17/15 = UA Nitrite) 12:22 PM) [facility] AND [id number] 18:22:00 Test Item Value Reference Range Interpretation Comments UA Leuk Est (test Moderate *ABN*(08/17/15 code = UA Leuk Est) 12:22 PM) [facility] AND [id number] 18:22:00 Test Item Value Reference Range Interpretation Comments UA RBC (test code = UA RBC) 51-100 /HPF <=2 [facility] AND [id number] 18:22:00 Test Item Value Reference Range Interpretation Comments UA Bacteria (test code = UA Moderate /HPF Bacteria) [facility] AND [id number] 18:22:00 Test Item Value Reference Range Interpretation Comments Micro? (test code = Performed (08/17/15 12:22 Micro?) PM) [facility] AND [id number] 18:22:00 Test Item Value Reference Range Interpretation Comments UA Urobilinogen (test code = UA 0.2 0.1-1.0 Urobilinogen) [facility] AND [id number] 18:22:00 Test Item Value Reference Range Interpretation Comments UA Bili (test code = Small *ABN*(08/17/15 UA Bili) 12:22 PM) [facility] AND [id number] 18:22:00 Test Item Value Reference Range Interpretation Comments UA Blood (test code = Large *ABN*(08/17/15 UA Blood) 12:22 PM) [facility] AND [id number] 18:22:00 Test Item Value Reference Range Interpretation Comments UA Ketones (test code = UA >=80 mg/dL Ketones) [facility] AND [id number] 18:22:00 Test Item Value Reference Range Interpretation Comments UA Glucose (test code Negative (08/17/15 12:22 = UA Glucose) PM) [facility] AND [id number] 18:22:00 Test Item Value Reference Range Interpretation Comments UA Color (test code = Yellow *NA*(08/17/15 UA Color) 12:22 PM) [facility] AND [id number] 18:22:00 Test Item Value Reference Range Interpretation Comments UA Turbidity (test code Cloudy *ABN*(08/17/15 = UA Turbidity) 12:22 PM) [facility] AND [id number] 18:22:00 Test Item Value Reference Range Interpretation Comments UA Spec Grav (test >=1.030 *ABN*(08/17/15 code = UA Spec Grav) 12:22 PM) [facility] AND [id number] 18:22:00 Test Item Value Reference Range Interpretation Comments UA pH (test code = UA pH) 6.0 1 5.0-8.0 [facility] AND [id number] 18:22:00 Test Item Value Reference Range Interpretation Comments UA Protein (test code = UA Protein) 30 mg/dL [facility] [id number] 18:20:00 Test Item Value Reference Range Interpretation Comments UDS Note (test code = See Note (08/17/15 12:20 UDS Note) PM) [facility] [id number] 18:20:00 Test Item Value Reference Range Interpretation Comments U Amph Scr (test code Negative *NA*(08/17/15 = U Amph Scr) 12:20 PM) [facility] [id number] 18:20:00 Test Item Value Reference Range Interpretation Comments U Bethany Scr (test code Negative *NA*(08/17/15 = U Bethany Scr) 12:20 PM) [facility] [id number] 18:20:00 Test Item Value Reference Range Interpretation Comments U Benzodia Scr (test Negative *NA*(08/17/15 code = U Benzodia Scr) 12:20 PM) [facility] [id number] 18:20:00 Test Item Value Reference Range Interpretation Comments U Cannab Scr (test Positive *ABN*(08/17/15 code = U Cannab Scr) 12:20 PM) [facility] [id number] 18:20:00 Test Item Value Reference Range Interpretation Comments U Cocaine Scr (test Negative *NA*(08/17/15 code = U Cocaine Scr) 12:20 PM) [facility] [id number] 18:20:00 Test Item Value Reference Range Interpretation Comments U Opiate Scr (test Negative *NA*(08/17/15 code = U Opiate Scr) 12:20 PM) [facility] [id number] 18:20:00 Test Item Value Reference Range Interpretation Comments U Phencyc Scr (test Negative *NA*(08/17/15 code = U Phencyc Scr) 12:20 PM) [facility] [employer] [id number] 17:28:00 Test Item Value Reference Range Interpretation Comments Lipase Lvl (test code = Lipase Lvl) 66 73-393 [facility] HospitalMarcato [facility] Solutions [id number] 17:28:00 Test Item Value Reference Range Interpretation Comments eGFR (test code = eGFR) 134 [facility]annalphacity[facility] [id number] 17:28:00 Test Item Value Reference Range Interpretation Comments Total Protein (test code = Total 7.9 6.4-8.4 Protein) [facility]2016-03-01 17:28:00 Test Item Value Reference Range Interpretation Comments Creatinine Lvl (test code = Creatinine 0.59 0.50-1.40 Lvl) [facility]2016-03-01 17:28:00 Test Item Value Reference Range Interpretation Comments Sodium Lvl (test code = Sodium Lvl) 135 135-145 [facility]2016-03-01 17:28:00 Test Item Value Reference Range Interpretation Comments Glucose Lvl (test code = Glucose Lvl) 77 70-99 [facility]2016-03-01 17:28:00 Test Item Value Reference Range Interpretation Comments BUN (test code = BUN) 5 7-22 [facility]2016-03-01 17:28:00 Test Item Value Reference Range Interpretation Comments AST (test code = AST) 19 <=37 [facility]2016-03-01 17:28:00 Test Item Value Reference Range Interpretation Comments Alk Phos (test code = Alk Phos) 55 39-136 [facility]2016-03-01 17:28:00 Test Item Value Reference Range Interpretation Comments Albumin Lvl (test code = Albumin Lvl) 3.8 3.5-5.0 [facility]2016-03-01 17:28:00 Test Item Value Reference Range Interpretation Comments ALT (test code = ALT) 42 <=65 [facility]2016-03-01 17:28:00 Test Item Value Reference Range Interpretation Comments CO2 (test code = CO2) 21 24-32 [facility]2016-03-01 17:28:00 Test Item Value Reference Range Interpretation Comments Calcium Lvl (test code = Calcium Lvl) 9.0 8.5-10.5 [facility]2016-03-01 17:28:00 Test Item Value Reference Range Interpretation Comments Potassium Lvl (test code = Potassium 4.0 3.5-5.1 Lvl) [facility]2016-03-01 17:28:00 Test Item Value Reference Range Interpretation Comments Chloride Lvl (test code = Chloride Lvl) 105 95-109 [facility]2016-03-01 17:28:00 Test Item Value Reference Range Interpretation Comments Bili Total (test code = Bili Total) 1.0 0.2-1.3 [facility]2016-03-01 17:28:00 Test Item Value Reference Range Interpretation Comments B/C Ratio (test code = B/C Ratio) 8 6-25 [facility]2016-03-01 17:28:00 Test Item Value Reference Range Interpretation Comments AGAP (test code = AGAP) 13.0 10.0-20.0 [facility]2016-03-01 17:28:00 Test Item Value Reference Range Interpretation Comments Globulin (test code = Globulin) 4.1 2.0-4.0 [facility]2016-03-01 17:28:00 Test Item Value Reference Range Interpretation Comments A/G Ratio (test code = A/G Ratio) 0.9 0.7-1.6 [place] [id number] 17:28:00 Test Item Value Reference Range Interpretation Comments S Preg (test code = S Positive *NA*(08/17/15 Preg) 11:28 AM) [place] [id number] 17:28:00 Test Item Value Reference Range Interpretation Comments hCG Tot (test code = hCG Tot) [address] [facility] [id number] 17:28:00 Test Item Value Reference Range Interpretation Comments Eosinophils # (test code = Eosinophils 0.1 <=0.5 #) [facility] [id number] 17:28:00 Test Item Value Reference Range Interpretation Comments Large Plt (test code Moderate *ABN*(08/17/15 = Large Plt) 11:28 AM) [facility] CenterNnbawnwFNPTPMAZRZ5065-81-15 17:28:00 Test Item Value Reference Range Interpretation Comments Monocytes # (test code = Monocytes #) 0.8 <=0.8 [facility] CenterQrbhoprGVPWSRIHCT8243-34-02 17:28:00 Test Item Value Reference Range Interpretation Comments Eosinophils (test code = Eosinophils) 0.6 <=4.0 [facility] CenterBiqblxaWXAWLCKLER6226-60-76 17:28:00 Test Item Value Reference Range Interpretation Comments Monocytes (test code = Monocytes) 4.4 2.0-12.0 [facility] CenterSicgftoTIXCPQMFZN6562-49-92 17:28:00 Test Item Value Reference Range Interpretation Comments Lymphocytes (test code = Lymphocytes) 4.4 20.0-40.0 [facility] CenterYtypxsyEHBJXOWCOY4420-13-52 17:28:00 Test Item Value Reference Range Interpretation Comments Lymphocytes # (test code = Lymphocytes 0.8 1.0-5.5 #) [facility] CenterBhjeecxAKTZHPUHHX6822-31-17 17:28:00 Test Item Value Reference Range Interpretation Comments Segs-Bands # (test code = Segs-Bands #) 16.8 1.5-8.1 [facility] CenterRklfaolLLUFQZVCDV7199-24-02 17:28:00 Test Item Value Reference Range Interpretation Comments Basophils (test code = Basophils) 0.2 <=1.0 [facility] CenterPnofncdYGBYHBMZHC9377-11-55 17:28:00 Test Item Value Reference Range Interpretation Comments RBC Morph (test code = Normal (08/17/15 11:28 RBC Morph) AM) [facility] [id number] 17:28:00 Test Item Value Reference Range Interpretation Comments Segs (test code = Segs) 90.4 45.0-75.0 [facility] CenterRcsalkgXLLTLTDACK0182-13-57 17:28:00 Test Item Value Reference Range Interpretation Comments RBC (test code = RBC) 4.76 4.20-5.40 [facility] CenterUdmdyurOSSBGXWSPL5129-77-47 17:28:00 Test Item Value Reference Range Interpretation Comments Hgb (test code = Hgb) 13.5 12.0-16.0 [facility] CenterCmtpidoJPZAHVPHJN5595-65-02 17:28:00 Test Item Value Reference Range Interpretation Comments MCV (test code = MCV) 86.2 80.0-98.0 [facility] CenterMbonjvjNXMPYJLANP5393-03-04 17:28:00 Test Item Value Reference Range Interpretation Comments Hct (test code = Hct) 41.1 36.0-48.0 [facility] CenterJioemooABRGTQFVTQ2111-15-47 17:28:00 Test Item Value Reference Range Interpretation Comments MCH (test code = MCH) 28.4 pg 27.0-31.0 [facility] CenterOsuxkytVQOPENRJCO0696-51-54 17:28:00 Test Item Value Reference Range Interpretation Comments RDW (test code = RDW) 13.2 11.5-14.5 [facility] CenterCfypazyQUCLXRMYUG8814-88-80 17:28:00 Test Item Value Reference Range Interpretation Comments MCHC (test code = MCHC) 33.0 32.0-36.0 [facility] CenterBbnvfmjJCALWXDRDI7543-78-88 17:28:00 Test Item Value Reference Range Interpretation Comments Platelet (test code = Platelet) 184 133-450 [facility] CenterGjimprhHFMMCXDZRL0677-47-86 17:28:00 Test Item Value Reference Range Interpretation Comments MPV (test code = MPV) 9.1 7.4-10.4 [facility] CenterIxrlpioLKOLLMGQPA9727-07-29 17:28:00 Test Item Value Reference Range Interpretation Comments WBC (test code = WBC) 18.6 3.7-10.4 [facility]
[2023-05-09 12:04] LABS: Specific Gravity 1.022 (1.005-1.030)
[2023-05-09 12:06] LABS: Specific Gravity 1.021 (1.005-1.030); Transitional Epithelial <5 /HPF (None Seen); Urine Bacteria None Seen /HPF (<20); Urine Bilirubin NEGATIVE (Negative); Urine Blood 1+ (Negative); Urine Clarity Turbid (Clear); Urine Color Light-Yellow (Yellow); Urine Glucose NEGATIVE (Negative); Urine Mucus Slight /HPF (None Seen); Urine Protein NEGATIVE (Negative); Urine RBC 21-50 /HPF (None Seen); Urine Urobilinogen Normal (Normal); Urine pH 5.5 (5.0-7.0)
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
--- NOTE | 2023-05-09 12:11 | EDPHYS ---
Physician Documentation [facility] Name: Milady Guy Age: 27 yrs Sex: Female : 1995 Arrival Date: 05/09/2023 Time: 11:13 Bed 14 Private MD: ED Physician Geovany Thomason HPI: 05/09 11:47 This 27 yrs old Female presents to ER via Ambulatory with complaints of Vaginal sb4 Discharge, Pelvic Pain. 11:47 The patient presents with a possible exposure to a sexually transmitted disease, sb4 gonorrhea, and has been treated with nothing to date. Onset: The symptoms/episode began/occurred yesterday. Associated signs and symptoms: Pertinent positives: cramping, dysuria, hematuria, vaginal bleeding. The patient's method of control includes nothing. 11:48 significant other tested positive for gonorrhea yesterday. she started experiencing sb4 pelvic pain and green vaginal discharge yesterday. also reports irregular periods this past month. Historical: - Allergies: 11:28 No Known Allergies; hb - Home Meds: 11:28 None [Active]; hb - PMHx: 11:28 None; hb - PSHx: 11:28 section; hb - Immunization history:: Adult Immunizations up to date. - Social history:: Smoking status: Patient denies any tobacco usage or history of. ROS: 11:48 Positive for pelvic pain, burning with urination, vaginal bleeding, vaginal sb4 discharge, 11:48 Constitutional: Negative for fever, chills, and weight loss, 11:48 All other systems are negative, Exam: 11:48 Constitutional: This is a well developed, well nourished patient who is awake, alert, sb4 and in no acute distress. Head/Face: Normocephalic, atraumatic. Eyes: Extra-ocular motions intact. Periorbital areas with no swelling, redness, or edema. ENT: Mucous membranes moist. Skin: Warm, dry with normal turgor. Normal color with no rashes, no lesions, and no evidence of cellulitis. MS/ Extremity: Pulses equal, no cyanosis. Neurovascular intact. Full, normal range of motion. Neuro: Awake and alert, GCS 15, oriented to person, place, time, and situation. Motor strength 5/5 in all extremities. Sensory grossly intact. Vital Signs: 11:25 BP 116 / 76; Pulse 82; Resp 16; Pulse Ox 99% ; ko1 11:26 BP 139 / 86; Pulse 84; Resp 16; Temp 98.4(O); Pulse Ox 97% on R/A; Weight 105.23 kg; hb Height 5 ft. 5 in. ; Pain 2/10; 13:22 BP 122 / 68; Pulse 88; Resp 18; Pulse Ox 99% ; ko1 11:26 Body Mass Index 38.61 (105.23 kg, 165.1 cm) hb 11:26 Pain Scale: Adult hb MDM: 11:23 Patient medically screened. sb4 11:48 Differential diagnosis: barry infection, cervicitis, pelvic inflammatory disease, sb4 urinary tract infection, vaginosis. 12:10 Data reviewed: vital signs, nurses notes, lab test result(s), and as a result, I will sb4 discharge patient. Counseling: I had a detailed discussion with the patient and/or guardian regarding the historical points, exam findings, and any diagnostic results supporting the discharge/admit diagnosis, lab results, to return to the emergency department if symptoms worsen or persist or if there are any questions or concerns that arise at home. 05/09 11:24 Order name: UAM; Complete Time: 12:08 sb4 05/09 11:24 Order name: Test, Urine; Complete Time: 12:08 sb4 05/09 11:24 Order name: GC (Brian/Chl) Probe URINE sb4 Administered Medications: 12:30 Drug: Rocephin (cefTRIAXone) IM 500 mg IM once Route: IM; Site: right deltoid; iw 12:30 Drug: metroNIDAZOLE PO 500 mg PO once Route: PO; iw 12:30 Drug: Doxycycline PO 100 mg PO once Route: PO; iw Disposition: 15:03 Co-signature as Attending Physician, Geovany Thomason MD I reviewed the patient's care rt provided by the Advanced Practice Provider and agree with the diagnosis and treatment plan. Disposition Summary: 05/09/23 12:11 Discharge Ordered Notes: Location: Home sb4 Problem: new sb4 Symptoms: have improved sb4 Condition: Stable sb4 Diagnosis - Gonococcal vulvovaginitis, unspecified sb4 Followup: sb4 - With: Emergency Department - When: As needed - Reason: Trouble breathing, Worsening of condition Discharge Instructions: - Discharge Summary Sheet sb4 - Gonorrhea sb4 Forms: - Medication Reconciliation Form sb4 - Thank You Letter sb4 - Antibiotic Education sb4 - Prescription Opioid Use sb4 - Patient Portal Instructions sb4 - Leadership Thank You Letter sb4 Prescriptions: - Doxycycline Hyclate 100 mg Oral tablet - take 1 tablet ORAL route every 12 hours for 7 days; 14 tablet; Refills: 0, sb4 Product Selection Permitted - Metronidazole 500 mg Oral tablet - take 1 tablet ORAL route every 12 hours for 7 days; 14 tablet; Refills: 0, sb4 Product Selection Permitted Signatures: Dispatcher [employer] Cate Givens, CARYL RN iw Radha Elizabeth RN RN Rossy Childress PA-C PA-C sb4 Geovany Thomason MD MD rt
[2023-05-09] MEDS ORDERED: metroNIDAZOLE 500 MG TABLET ONE (12:42)
[2023-05-09] MEDS ORDERED: CEFTRIAXONE 500 MG/VIAL ONE (12:43)
[2023-05-09] MEDS ORDERED: DOXYCYCLINE 100 MG CAP PO ONE (12:43)
[2023-05-09] MEDS ORDERED: LIDOCAINE 1% MPF 2 ML AMPULE ONE (12:44)
[2023-05-09 13:29] VITALS: TEMP 98.4
[2023-05-09 13:31] VITALS: BP 122/68; O2SAT 99
[2023-05-12 14:20] LABS: C.trachomatis RNA,TMA Not Detected (Not Detected)
== END 2023-05-09 13:23 | disposition home or self-care (01) ==
LOC: ER 11:13
DX: A54.02 Gonococcal vulvovaginitis, unspecified (principal)
CPT/HCPCS: 81001; 81025; 87490; 87590; 96372; 99284

== ENCOUNTER 2024-01-22 08:59 | Emergency (ER) | payer SELFPAY ==
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
[2024-01-23 01:41] VITALS: BP 114/71; TEMP 98.2
[2024-01-23 01:43] VITALS: O2SAT 97
== END 2024-01-22 11:03 | disposition home or self-care (01) ==
LOC: ER 08:59
DX: Z04.41 Encounter for examination and observation following alleged adult rape (principal); O9A.211 Injury, poisoning and certain other consequences of external causes complicating pregnancy, first trimester; S10.83XA Contusion of other specified part of neck, initial encounter; Z3A.12 12 weeks gestation of pregnancy
CPT/HCPCS: 76815